=== PATIENT | male | born 1995 | race Caucasian/White ===

== ENCOUNTER 2021-01-01 00:41 | Emergency (ER) | payer OTHER ==
[2021-01-01 01:14] LABS: BASOPHIL 0.7 % (0-2); HCT 43.7 % (42.0-52.0); HGB 14.1 g/dl (13.2-18.0); LYMPHOCYTE 32.6 % (15-48); MCH 27.5 pg (25.0-31.0); MCHC 32.3 g/dL (32.0-36.0); MCV 85.4 fL (78.0-100.0); MONOCYTE 6.6 % (0-12); MPV 8.5 fL (6.0-9.5); NEUTROPHIL 56.9 % (41-80); NRBC 0; PLT 412 K/uL (150-400); RBC 5.12 M/uL (4.70-6.00); RDW 14.6 % (11.5-14.0); WBC 8.6 K/uL (4.0-10.5)
[2021-01-01 01:40] LABS: ALBUMIN 3.8 g/dL (3.4-5.0); ALKALINE PHOSHATASE 78 U/L (46-116); ALT 26 U/L (16-63); AST 24 U/L (15-37); BILIRUBIN - TOTAL 0.2 mg/dL (0.2-1.0); BUN 15 mg/dL (7-18); BUN/CREAT RATIO (CALC) 18.1 RATIO; CHLORIDE 100 mmol/L (98-107); CO2 (BICARBONATE) 31 mmol/L (21-32); CREATININE 0.83 mg/dL (0.67-1.17); GLOBULIN (CALCULATION) 3.4 g/dL; GLUCOSE 120 mg/dL (74-106); POTASSIUM 3.7 mmol/L (3.5-5.1); TOTAL PROTEIN 7.2 g/dL (6.4-8.2)
[2021-01-01 01:41] LABS: BILIRUBIN NEGATIVE (NEGATIVE); BLOOD NEGATIVE Ery/uL (NEGATIVE); CLARITY CLEAR (CLEAR); COLOR YELLOW (YELLOW); GLUCOSE (U) NORMAL (NORMAL); LEUKOCYTES NEGATIVE Leu/uL (NEGATIVE); NITRITE NEGATIVE (NEGATIVE); PROTEIN NEGATIVE (NEGATIVE); SPECIFIC GRAVITY >=1.030 (1.001-1.030); UROBILINOGEN 0.2 mg/dL (0.2-1.0); pH 5.5 (5.0-9.0)
[2021-01-01 01:41] LABS: ACETAMINOPHEN (TYLENOL) < 2.0 ug/mL (10.0-30.0)
[2021-01-01 01:44] LABS: AMPHETAMINES NEGATIVE (NEGATIVE); BARBITURATES NEGATIVE (NEGATIVE); ECSTASY (MDMA) NEGATIVE (NEGATIVE); MARIJUANA (THC) NEGATIVE (NEGATIVE); METHADONE NEGATIVE (NEGATIVE); OPIATES NEGATIVE (NEGATIVE); OXYCODONE NEGATIVE (NEGATIVE)
[2021-01-01 01:58] LABS: CORONAVIRUS 2019 SARS-COV-2 NEGATIVE (NEGATIVE); INFLUENZA A NAA NEGATIVE (NEGATIVE)
== END 2021-01-01 12:07 ==
LOC: FER 00:41
PROVIDERS: Student in an Organized Health Care Education/Training Program
DX: F32.9 Major depressive disorder, single episode, unspecified (principal); Z91.5 Personal history of self-harm; Z20.822 Contact with and (suspected) exposure to COVID-19
CPT/HCPCS: 36415; 71045; 80053; 80305; 81003; 82553; 85025; 93005; G0480; U0002

== ENCOUNTER 2021-01-17 15:38 | Emergency (ER) | payer OTHER | END 2021-01-17 16:19 | disposition left against medical advice (07) | LOC: FER 15:38 | DX: Z53.8 Procedure and treatment not carried out for other reasons (principal) ==